=== PATIENT | female | born 1985 | race Two or more races ===

== ENCOUNTER 2022-04-05 13:10 | Emergency (ER) | payer MEDICAID, OTHER ==
[~2022-04-05] VITALS: Ht 162.6 cm; Wt 100.0 kg
[2022-04-05 14:41] VITALS: BP 111/57
[2022-04-05] MEDS ORDERED: KETOROLAC TROMETH 60MG/2ML VIAL IM ONE (16:00)
[2022-04-05] MEDS ORDERED: IBUP800T27 PO (16:20)
[2022-04-05] MEDS ORDERED: METH750T22 PO (16:20)
== END 2022-04-05 16:40 | disposition home or self-care (01) ==
LOC: ER 13:10
DX: S83.92XA Sprain of unspecified site of left knee, initial encounter (principal); E66.01 Morbid (severe) obesity due to excess calories; I10 Essential (primary) hypertension; Z68.37 Body mass index [BMI] 37.0-37.9, adult; Z79.1 Long term (current) use of non-steroidal anti-inflammatories (NSAID); Z79.899 Other long term (current) drug therapy; X50.1XXA Overexertion from prolonged static or awkward postures, initial encounter; Y93.89 Activity, other specified; Y92.89 Other specified places as the place of occurrence of the external cause; Y99.8 Other external cause status
CPT/HCPCS: 73562

== ENCOUNTER 2023-03-06 11:56 | Emergency (ER) | payer MEDICAID ==
[~2023-03-06] VITALS: Ht 162.6 cm; Wt 129.3 kg
[~2023-03-06 11:56] MED LIST: IBUP-1456 PO; METH-1182 PO
[2023-03-06] MEDS ORDERED: cefTRIAXone SOD 1,000 MG VL IM ONE ×2 (12:15→13:00)
[2023-03-06 12:50] VITALS: PULSE 95; RESP 16; TEMP 97.9; O2SAT 95
[2023-03-06] MEDS ORDERED: CLIN300C70 PO (12:58)
[2023-03-06] MEDS ORDERED: IBU600T PO (12:58)
[2023-03-06] MEDS ORDERED: CEPH250C PO (12:58)
[2023-03-06 13:13] LABS: Basophils # (auto) 0.1 10 ^3/uL (0-0.2); Basophils % (auto) 1.1 % (0.0-2.0); Eosinophils # (auto) 0.1 10 ^3/uL (0-0.8); Eosinophils % (auto) 0.8 % (0.0-7.0); Hematocrit 39.3 % (36.0-46.0); Hemoglobin 12.9 g/dL (12.2-16.2); Lymphocytes # (auto) 1.2 10 ^3/uL (0.4-5.4); Lymphocytes % (auto) 13.3 % (10.0-50.0); Mean Corpuscular Hgb Conc. 32.9 g/dL (32.0-36.0); Mean Corpuscular Volume 87.9 fL (80.0-100.0); Monocytes # (auto) 1.1 10 ^3/uL (0-1.3); Monocytes % (auto) 12.1 % (0.0-12.0); Neutrophils # (auto) 6.4 10 ^3/uL (1.6-8.6); Neutrophils % (auto) 72.7 % (37.0-80.0); Nucleated Red Blood Cells % 0.1 %; Red Blood Cells 4.46 10^6/uL (4.0-5.20); Red Cell Distribution Width 15.6 % (11.8-14.3); White Blood Cell 8.8 10^3/uL (4.4-10.8)
[2023-03-06 13:17] LABS: Alanine Aminotransferase 89 U/L (7-40); Albumin 4.2 g/dL (3.2-4.8); Alkaline Phosphatase 154 U/L (46-116); Anion Gap 6.3 (5-15); Aspartate Aminotransferase 46 U/L (13-40); BUN/Creatinine Ratio 13.2 (10.0-20.0); Bilirubin, Total 0.3 mg/dL (0.2-1.0); Blood Urea Nitrogen 10 mg/dL (9-23); Calcium 9.3 mg/dL (8.5-10.1); Carbon Dioxide 24.7 mmol/L (20-30); Chloride 102 mmol/L (98-107); Glucose 129 mg/dL (74-106); Potassium 4.3 mmol/L (3.5-5.1); Sodium 133 mmol/L (136-145); Total Protein 7.5 g/dL (5.7-8.2)
[2023-03-06 15:03] VITALS: BP 158/95; PULSE 89; RESP 16; O2SAT 98
== END 2023-03-06 15:07 | disposition home or self-care (01) ==
LOC: ER 11:56
DX: L03.312 Cellulitis of back [any part except buttock and flank] (principal); R10.2 Pelvic and perineal pain; I10 Essential (primary) hypertension; Z79.899 Other long term (current) drug therapy
CPT/HCPCS: 36415; 80053; 84702; 85025; 96372; 99283; J0696